=== PATIENT | female | born 1960 | race American Indian/Alaskan Native ===

== ENCOUNTER → 2017-04-07 | Day surgery (SDC) | payer OTHER ==
--- NOTE | 2017-04-09 08:49 | PATH ---
Cytology Non-Gynecological Report Patient Name: RAFFY NUÑEZ [facility]. Rec. #: [id number] /Age/Gender: 1960 (Age: 56) / F Account: [id number] Location: RADIOLOGY Taken: 04/07/2017 Received: 04/07/2017 Reported: 04/09/2017 Physicians: Yogi Jordan M.D. Specimen(s) Received LEFT THYROID FNA Clinical History Left thyroid nodule, 1.82 x 0.8 x 1.25 cm Final Diagnosis THYROID GLAND, LEFT LOBE, US GUIDED FINE NEEDLE ASPIRATION BIOPSY: SATISFACTORY FOR EVALUATION. NO MALIGNANT CELLS IDENTIFIED. HETEROGENOUS LYMPHOCYTES, MACROPHAGES, SCATTERED BLAND APPEARING FOLLICULAR EPITHELIAL CELLS AND SCANT COLLOID (SEE COMMENT). Comment: The smears show heterogenous lymphoid population, macrophages, scattered bland appearing follicular cells, many with Hurthle cell (oncocytic) change, and scant colloid. These findings may represent an intrathyroidal lymph node or marked nodular lymphocytic thyroiditis; lymphoepithelial cyst is less likely (Irvona category II, benign). Imaging and clinical correlations and follow up are suggested. Electronically Signed Nile Suárez M.D. Gross Description Received are four air dried smears, four smears in 95% alcohol, and 20 cc of bloody fluid in formalin. Four diff-quik stained slides, four Pap stained slides and one cell block are made.
== END | disposition home or self-care (01) ==
LOC: JRADIR 09:44
PROVIDERS: ATTEND Otolaryngology Facial Plastic Surgery
PROC: 0G9G3ZX Drainage of Left Thyroid Gland Lobe, Percutaneous Approach, Diagnostic (ICD-10-PCS; principal; 2017-04-07)
PROC: BG44ZZZ Ultrasonography of Thyroid Gland (ICD-10-PCS; 2017-04-07)
DX: E04.1 Nontoxic single thyroid nodule (principal)
CPT/HCPCS: 76942; 88173; 88305-TC

== ENCOUNTER → 2017-04-15 | Day surgery (SDC) | payer OTHER ==
--- NOTE | 2017-04-16 12:19 | PATH ---
Cytology Non-Gynecological Report Patient Name: RAFFY NUÑEZ [facility]. Rec. #: [id number] /Age/Gender: 1960 (Age: 56) / F Account: [id number] Location: Taken: 04/15/2017 Received: 04/15/2017 Reported: 04/16/2017 Physicians: Yogi Perez M.D. Specimen(s) Received RIGHT THYROID FNA Clinical History Right 1.64 x 0.55 x 0.95 cm Final Diagnosis THYROID, RIGHT, FINE NEEDLE ASPIRATION: BETHESDA CATEGORY I: NONDIAGNOSTIC SPECIMEN DEBRIS AND BLOOD PRESENT Comment: Recommend correlation with clinical findings and follow up as clinically indicated. Electronically Signed Ulices Palomino M.D. Gross Description Received are eight direct smears, four of which are air-dried and Diff-Quik stained, and four of which are alcohol fixed and Pap stained. Also received is a container of formalin from which one cellblock is prepared.
== END | disposition home or self-care (01) ==
LOC: JRADIR 09:51
PROVIDERS: ATTEND Otolaryngology Facial Plastic Surgery
PROC: 0G9H3ZX Drainage of Right Thyroid Gland Lobe, Percutaneous Approach, Diagnostic (ICD-10-PCS; principal; 2017-04-15)
PROC: BG44ZZZ Ultrasonography of Thyroid Gland (ICD-10-PCS; 2017-04-15)
DX: E04.1 Nontoxic single thyroid nodule (principal)
CPT/HCPCS: 76942; 88173; 88305-TC

== ENCOUNTER → 2017-07-27 | Day surgery (SDC) | payer OTHER ==
--- NOTE | 2017-07-28 18:09 | PATH ---
Cytology Non-Gynecological Report Patient Name: RAFFY NUÑEZ [facility]. Rec. #: [id number] /Age/Gender: 1960 (Age: 56) / F Account: [id number] Location: RADIOLOGY Taken: 07/27/2017 Received: 07/27/2017 Reported: 07/28/2017 Physicians: Yogi Perez M.D. Specimen(s) Received RIGHT THYROID FNA Clinical History Thyroid nodule, 1.55 x 0.86 x 0.56 cm Final Diagnosis THYROID, RIGHT, FINE NEEDLE ASPIRATION: UNSATISFACTORY FOR EVALUATION BETHESDA CLASS I: NON-DIAGNOSTIC. BLOOD, PERIPHERAL BLOOD ELEMENTS AND SCATTERED DEBRIS PRESENT. NO FOLLICULAR CELLS OR SIGNIFICANT COLLOID IDENTIFIED. Electronically Signed Izabela Claire M.D. Gross Description Received are eight direct smears, four of which are air-dried and Diff-Quik stained, and four of which are alcohol fixed and Pap stained. Also received is 20 ml of bloody formalin from which one cellblock is prepared.
== END | disposition home or self-care (01) ==
LOC: JRADIR 10:34
PROVIDERS: ATTEND Otolaryngology Facial Plastic Surgery
PROC: 0G9H3ZX Drainage of Right Thyroid Gland Lobe, Percutaneous Approach, Diagnostic (ICD-10-PCS; principal; 2017-07-27)
PROC: BG44ZZZ Ultrasonography of Thyroid Gland (ICD-10-PCS; 2017-07-27)
DX: E04.1 Nontoxic single thyroid nodule (principal)
CPT/HCPCS: 76942; 88173; 88305-TC

== ENCOUNTER 2025-02-13 14:43 | Inpatient (IN) | payer OTHER ==
[2025-02-13 16:28] LABS: ABSOLUTE IMMATURE GRANULOCYTES 0.01 x10^3/uL (0.0-0.031); BASOPHILS # 0.05 x10^3/uL (0.01-0.08); EOSINOPHIL % 1.2 % (0.7-5.8); EOSINOPHILS # 0.09 x10^3/uL (0.04-0.36); MCHC 29.0 g/dl (32.2-35.5); MEAN CELL VOLUME 66.6 fl (79.4-94.8); MONOCYTE # 0.57 x10^3/uL (0.24-0.86); MONOCYTE % 7.5 % (4.7-12.5); RDW 18.2 % (12.4-16.4)
[2025-02-13 16:41] LABS: INR 1.01 (0.83-1.09); PROTHROMBIN TIME (PATIENT) 11.0 SEC (9.7-13.0)
[2025-02-13 16:43] LABS: ACTIVATED PTT 24.7 SECONDS (25.2-36.5)
[2025-02-13 16:50] LABS: CO2 27.0 mmol/L (21-32); GLUCOSE,RANDOM 93.0 mg/dL (74-106)
[2025-02-13 16:53] LABS: CREATININE 0.7 mg/dL (0.55-1.3); SGOT/AST 26.0 U/L (15-37); SGPT/ALT 20.0 U/L (13-61)
[2025-02-13 16:55] LABS: TOT PROT 7.4 g/dl (6.4-8.2)
[2025-02-13 16:56] LABS: ALK PHOS 105.0 U/L (45-117)
[2025-02-13 18:21] LABS: HCV DIAGNOSTIC IN-HOUSE W/RFLX NON-REACTIVE (NONREACTIVE)
[2025-02-13 19:33] LABS: N-TERMINAL BNP 69.3 pg/ml (5-125)
[2025-02-13 20:29] LABS: HIV INTERPRETATION NEGATIVE (NEGATIVE)
[2025-02-13 22:41] LABS: ABSOLUTE IMMATURE GRANULOCYTES 0.02 x10^3/uL (0.0-0.031); BASOPHILS # 0.05 x10^3/uL (0.01-0.08); EOSINOPHIL % 1.6 % (0.7-5.8); EOSINOPHILS # 0.12 x10^3/uL (0.04-0.36); MCHC 29.2 g/dl (32.2-35.5); MEAN CELL VOLUME 69.0 fl (79.4-94.8); MONOCYTE # 0.71 x10^3/uL (0.24-0.86); MONOCYTE % 9.6 % (4.7-12.5); RDW 20.4 % (12.4-16.4)
[2025-02-13 23:29] VITALS: BMI 24.4
[2025-02-14 08:07] LABS: ABSOLUTE IMMATURE GRANULOCYTES 0.03 x10^3/uL (0.0-0.031); BASOPHILS # 0.06 x10^3/uL (0.01-0.08); EOSINOPHIL % 2.2 % (0.7-5.8); EOSINOPHILS # 0.16 x10^3/uL (0.04-0.36); MCHC 29.0 g/dl (32.2-35.5); MEAN CELL VOLUME 68.6 fl (79.4-94.8); MONOCYTE # 0.79 x10^3/uL (0.24-0.86); MONOCYTE % 10.9 % (4.7-12.5); RDW 19.2 % (12.4-16.4)
[2025-02-14 08:32] LABS: CO2 27.0 mmol/L (21-32); GLUCOSE,RANDOM 124.0 mg/dL (74-106)
[2025-02-14 08:35] LABS: CREATININE 0.6 mg/dL (0.55-1.3)
[2025-02-14] MEDS: FERROUS SO4 325 MG TABLET (FP) PO SCH (09:16)
[2025-02-14 09:19] VITALS: BP 108/51; PULSE 70; RESP 17; TEMP 97.7
== END 2025-02-14 13:25 | disposition home or self-care (01) | DRG 812 ==
LOC: JER 14:43 → JERBED 17:00 → J7W 22:57 → OBSVTOIN 02-14 08:32
PROVIDERS: ADMIT Internal Medicine; ATTEND Internal Medicine
PROC: 30233N1 Transfusion of Nonautologous Red Blood Cells into Peripheral Vein, Percutaneous Approach (ICD-10-PCS; principal; 2025-02-13)
DX: D50.9 Iron deficiency anemia, unspecified (principal); K51.90 Ulcerative colitis, unspecified, without complications; D25.9 Leiomyoma of uterus, unspecified; R73.03 Prediabetes
CPT/HCPCS: 36415; 36430; 71045-TC-FY; 80048; 80053; 82962; 83880; 85025; 85610; 85730; 86803; 86850; 86900; 86901; 86922; 87389; 93005; 93010; 99285-25; G0378; P9058